=== PATIENT | female | born 1970 | race American Indian/Alaskan Native ===

== ENCOUNTER 2017-06-25 20:10 | Observation (INO) | payer OTHER, BC ==
[2017-06-25] MEDS ORDERED: Oxycodone/Acetaminophen 5/325 mg Tab PO STA (21:00)
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
[2017-06-25] MEDS ORDERED: Morphine 4 mg/ml ISec IVP STA (21:13)
[2017-06-25] MEDS: Sodium Chloride 0.9% 1,000 ML IV SCH (21:21)
[2017-06-25 21:28] LABS: BASO # 0.04 K/mm3 (0.0-2.0); BASO % 0.6 % (0.0-3.0); EOS # 0.3 (0.0-0.7); EOS % 3.9 % (1.5-5.0); GRAN # 3.9 (1.4-6.5); GRAN % 55.9 % (50.0-68.0); HEMATOCRIT 39.7 % (36.0-48.0); LYMPH # 2.4 (1.2-3.4); LYMPH % 34.3 % (22.0-35.0); MEAN CELL VOLUME 90.4 fl (80.0-105.0); MEAN CORPUSCULAR HEMOGLOBIN 30.1 pg (25.0-35.0); MEAN CORPUSCULAR HGB CONC 33.2 g/dl (31.0-37.0); MEAN PLATELET VOLUME 9.9 fl (7.0-11.0); MONO # 0.4 (0.1-0.6); MONO % 5.3 % (1.0-6.0); RED CELL DISTRIBUTION WIDTH 13.8 % (11.5-14.5)
[2017-06-25 22:01] LABS: ALB/GLOB RATIO 1.1 (1.1-1.8); ALKALINE PHOSPHATASE 74 U/L (38-133); ALT/SGPT 26 U/L (7-56); AST/SGOT 27 U/L (15-39); BILIRUBIN,TOTAL 0.4 mg/dL (0.2-1.3); BLOOD UREA NITROGEN 13 mg/dL (7-21); CALCIUM 8.8 mg/dL (8.4-10.5); CARBON DIOXIDE 26 mmol/L (21-33); CHLORIDE 108 mmol/L (98-107); GFR AFRICAN-AMERICAN > 60; GLUCOSE,RANDOM 86 mg/dL (70-110); POTASSIUM 3.8 mmol/L (3.6-5.0); SODIUM 141 mmol/L (132-148); TOTAL PROTEIN 7.4 g/dL (5.8-8.3)
[2017-06-25 22:15] LABS: TROPONIN I < 0.01 ng/mL
[2017-06-25] MEDS ORDERED: diaZEpam 10 mg/2 ml Inj IVP ONE (22:57)
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
[2017-06-26] MEDS ORDERED: Albuterol-Ipratrop 3 mg / 0.5 (3 ml) UD IH PRN (00:12)
[2017-06-26] MEDS: Morphine 2 mg/ml ISec IVP PRN ×3 (01:09→12:09)
[2017-06-26] MEDS: Sodium Chloride 0.9% 1,000 ML IV SCH ×2 (02:26→12:11)
[2017-06-26 03:33] VITALS: BMI 45.4
[2017-06-26] MEDS ORDERED: Pneumococcal 23-Valent Vaccine IM ONE (03:33)
[2017-06-26] MEDS ORDERED: Pantoprazole 40 mg EC Tab PO SCH (06:00)
[2017-06-26 06:20] LABS: URINE BILIRUBIN NEGATIVE (NEGATIVE); URINE BLOOD NEGATIVE (NEGATIVE); URINE GLUCOSE (UA) NEGATIVE (NEGATIVE); URINE KETONE NEGATIVE (NEGATIVE); URINE LEUKOCYTE ESTERASE NEGATIVE Leu/uL (NEGATIVE); URINE PROTEIN NEGATIVE mg/dL (<30 mg/dL)
[2017-06-26 06:25] LABS: URINE APPEARANCE CLEAR (CLEAR); URINE COLOR YELLOW (YELLOW)
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
[2017-06-26] MEDS: Albuterol-Ipratrop 3 mg / 0.5 (3 ml) UD IH SCH ×2 (08:02→13:40)
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
[2017-06-26 08:23] VITALS: BP 125/61; PULSE 72; RESP 18; TEMP 98.1; O2SAT 98
--- NOTE | 2017-06-26 08:53 | RAD ---
PROCEDURE: Radiographs of the left elbow. HISTORY: r/o fracture COMPARISON: No prior. FINDINGS: BONES: There is no acute displaced fracture or bone destruction. Bone alignment and mineralization are normal JOINTS: Normal. No osteoarthritis. SOFT TISSUES: Normal. JOINT EFFUSION: None. OTHER FINDINGS: None IMPRESSION: No acute displaced fracture or dislocation.
--- NOTE | 2017-06-26 09:00 | RAD ---
PROCEDURE: Cervical Spine Radiographs. HISTORY: Pain. COMPARISON: None. FINDINGS: BONES: There is straightening of the cervical spine with loss of normal cervical lordosis. Vertebral alignment is normal. Status post ACDF at C3-4 and C4-5. The craniocervical junction is normal. The atlantoaxial joint is normal. DISC SPACES: There is severe degenerative disc disease at C2-3 and C6-7 with anterior osteophytes and reduced disc heights. SOFT TISSUES: Normal. No prevertebral soft tissue swelling. OTHER FINDINGS: None. IMPRESSION: Status post ACDF at C3-4 and C4-5, severe degenerative disc disease at C2-3 and C6-7. Straightening of the cervical spine may be positional or related to muscle spasm.
--- NOTE | 2017-06-26 10:11 | CARD ---
APPROVED REPORT EKG Measurement Heart [id number] <Conclusion> Sinus rhythm with 1st degree AV block Moderate voltage criteria for LVH, may be normal variant Borderline ECG
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
== END 2017-06-26 15:29 | disposition home or self-care (01) ==
LOC: ED 20:10 → ERH 23:02 → 3RNO 06-26 01:46
PROVIDERS: ADMIT Internal Medicine; ATTEND Hospitalist
DX: R07.9 Chest pain, unspecified (principal); E11.9 Type 2 diabetes mellitus without complications; G47.30 Sleep apnea, unspecified; I10 Essential (primary) hypertension; I25.10 Atherosclerotic heart disease of native coronary artery without angina pectoris; J45.909 Unspecified asthma, uncomplicated; Z79.899 Other long term (current) drug therapy; Z82.49 Family history of ischemic heart disease and other diseases of the circulatory system; Z82.5 Family history of asthma and other chronic lower respiratory diseases; Z83.3 Family history of diabetes mellitus; G43.909 Migraine, unspecified, not intractable, without status migrainosus; R26.81 Unsteadiness on feet; Z98.51 Tubal ligation status; F41.9 Anxiety disorder, unspecified; F32.89 Other specified depressive episodes; Z88.6 Allergy status to analgesic agent; Z88.1 Allergy status to other antibiotic agents; Z88.8 Allergy status to other drugs, medicaments and biological substances; G47.00 Insomnia, unspecified; R20.2 Paresthesia of skin; M54.12 Radiculopathy, cervical region; S40.012A Contusion of left shoulder, initial encounter; S50.02XA Contusion of left elbow, initial encounter; V43.52XA Car driver injured in collision with other type car in traffic accident, initial encounter; Y92.410 Unspecified street and highway as the place of occurrence of the external cause
CPT/HCPCS: 36415; 71020; 72050; 73030; 73080; 80053; 81003; 82550; 82948; 83615; 84484; 85025; 93005; 96374; 96375; 96376; 99285; G0378; J2270; J2405; J3360; J7040

== ENCOUNTER 2017-09-25 10:45 | Emergency (ER) | payer BC ==
[2017-09-25 10:50] VITALS: BMI 43.8
[2017-09-25] MEDS ORDERED: Albuterol-Ipratrop 3 mg / 0.5 (3 ml) UD IH STA (11:10)
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
[2017-09-25] MEDS ORDERED: DiphenhydrAMINE 50 mg/ml Inj IVP STA (11:12)
[2017-09-25 11:14] VITALS: RESP 16; TEMP 97.9; O2SAT 100
[2017-09-25 11:23] LABS: BASO # 0.03 K/mm3 (0.0-2.0); BASO % 0.4 % (0.0-3.0); EOS # 0.2 (0.0-0.7); GRAN # 3.51 (1.4-6.5); GRAN % 50.9 % (50.0-68.0); HEMATOCRIT 43.7 % (36.0-48.0); LYMPH # 2.8 (1.2-3.4); LYMPH % 40.8 % (22.0-35.0); MEAN CELL VOLUME 91.6 fl (80.0-105.0); MEAN CORPUSCULAR HEMOGLOBIN 30.6 pg (25.0-35.0); MEAN CORPUSCULAR HGB CONC 33.4 g/dl (31.0-37.0); MEAN PLATELET VOLUME 10.6 fl (7.0-11.0); MONO # 0.3 (0.1-0.6); MONO % 4.9 % (1.0-6.0); WHITE BLOOD COUNT 6.9 10^3/ul (4.5-11.0)
[2017-09-25 11:36] LABS: INR 1.01 (0.93-1.08); PARTIAL THROMBOPLASTIN TIME 28.5 Seconds (25.1-36.5)
[2017-09-25 12:08] LABS: ALKALINE PHOSPHATASE 90 U/L (38-126); ALT/SGPT 29 U/L (7-56); AST/SGOT 21 U/L (14-36); BILIRUBIN,TOTAL 0.6 mg/dL (0.2-1.3); BLOOD UREA NITROGEN 10 mg/dL (7-21); CALCIUM 8.8 mg/dL (8.4-10.5); CARBON DIOXIDE 28 mmol/L (21-33); CHLORIDE 106 mmol/L (98-107); GFR AFRICAN-AMERICAN > 60; GLUCOSE,RANDOM 96 mg/dL (70-110); POTASSIUM 3.5 mmol/L (3.6-5.0); SODIUM 140 mmol/L (132-148); TOTAL PROTEIN 7.7 g/dL (5.8-8.3)
[2017-09-25 12:20] LABS: TROPONIN I < 0.01 ng/mL
--- NOTE | 2017-09-25 13:01 | RAD ---
HISTORY: pain COMPARISON: Comparison is made to 09/04/2017 TECHNIQUE: Chest PA and lateral FINDINGS: LUNGS: No active pulmonary disease. PLEURA: No significant pleural effusion identified. No pneumothorax apparent. CARDIOVASCULAR: Normal. OSSEOUS STRUCTURES: No significant abnormalities. VISUALIZED UPPER ABDOMEN: Normal. OTHER FINDINGS: None. IMPRESSION: No active disease.
[2017-09-25 13:49] LABS: PH,URINE 6.5 (4.7-8.0); URINE BILIRUBIN NEGATIVE (NEGATIVE); URINE BLOOD NEGATIVE (NEGATIVE); URINE GLUCOSE (UA) NEGATIVE (NEGATIVE); URINE KETONE NEGATIVE (NEGATIVE); URINE LEUKOCYTE ESTERASE NEGATIVE Leu/uL (NEGATIVE); URINE PROTEIN NEGATIVE mg/dL (<30 mg/dL); URINE UROBILINOGEN 0.2 E.U./dL (<1 E.U./dL)
[2017-09-25 13:51] LABS: URINE APPEARANCE CLEAR (CLEAR); URINE COLOR YELLOW (YELLOW)
[2017-09-25 16:07] VITALS: BP 152/87; PULSE 68
--- NOTE | 2017-09-26 09:52 | CARD ---
APPROVED REPORT EKG Measurement Heart [id number] <Conclusion> Normal sinus rhythm with sinus arrhythmia Minimal voltage criteria for LVH, may be normal variant NSSTW changes No change
== END 2017-09-25 15:00 | disposition home or self-care (01) ==
LOC: ED 10:45
DX: R07.9 Chest pain, unspecified (principal); T50.995A Adverse effect of other drugs, medicaments and biological substances, initial encounter; Y92.89 Other specified places as the place of occurrence of the external cause; I10 Essential (primary) hypertension; E11.9 Type 2 diabetes mellitus without complications
CPT/HCPCS: 71020; 80053; 81003; 82550; 83615; 83880; 84484; 85025; 85610; 85730; 87086; 93005; 96374; 96375; 99284; J1200; J2930

== ENCOUNTER 2018-02-06 07:35 | Emergency (ER) | payer BC ==
[2018-02-06 07:45] VITALS: BMI 47.0
[2018-02-06] MEDS ORDERED: DiphenhydrAMINE 50 mg/ml Inj IVP ONE (07:51)
[2018-02-06] MEDS ORDERED: Sodium Chloride 0.9% 500 ML IV ONE (07:51)
[2018-02-06 07:55] VITALS: TEMP 98.1
--- NOTE | 2018-02-06 07:59 | ED PDOC ---
Arrival/HPI - General Chief Complaint: Allergic Reaction Time Seen by Provider: 02/06/18 07:46 Historian: Patient - History of Present Illness Narrative History of Present Illness (Text): 02/06/18 07:58 A 48 year old female, whose past medical history includes hypertension and CAD, presents to the emergency department complaining of difficulty swallowing, difficulty breathing. Patient reports she woke up and felt something was stuck in her throat. Patient reports similar symptoms multiple times in the past. Patient denies smoking or drinking. Denies any fever, wheezing, chest pain, nausea, vomiting or any other complaints at this time. Symptom Onset: Sudden Symptom Course: Unchanged Activities at Onset: Rest Context: Home Associated Symptoms (Text): 02/06/18 10:41 This morning with a feeling as if something was stuck in her throat. She has had similar episodes multiple times previously and diagnosed with allergic reaction with uvula swelling and edema. She does not appear to be in any distress. No respiratory distress. Past Medical History - Provider Review Nursing Documentation Reviewed: Yes - Infectious Disease Hx of Infectious Diseases: None - Tetanus Immunization Tetanus Immunization: Unknown - Cardiac Hx Cardiac Disorders: Yes Hx [place]: Yes (x3) Hx Hypertension: Yes - Pulmonary Hx Respiratory Disorders: Yes Hx Asthma: Yes Hx Respiratory Tract Infection: Yes Hx Sleep Apnea: Yes - Neurological Hx Neurological Disorder: Yes Hx Migraine: Yes - HEENT Hx HEENT Disorder: Yes Other/Comment: HX:eye surgery for lazy eye - Endocrine/Metabolic Hx Endocrine Disorders: Yes Hx Diabetes Mellitus Type 2: Yes - Hematological/Oncological Hx Blood Disorders: Yes Hx Anemia: Yes Other/Comment: HX: MGUS - Musculoskeletal/Rheumatological Hx Musculoskeletal Disorders: Yes Hx Falls: Yes Hx Unsteady Gait: Yes Other/Comment: HX: "LEFT KNEE MENISCUS REPAIR"-PER MED. RECORD. HX: "NECK SURGERY INVOLVING PLACEMENT OF METAL PLATES C2-C4"-PER MED RECORD - Genitourinary/Gynecological Hx Genitourinary Disorders: Yes Other/Comment: HX:fibroids - Psychiatric Hx Psychophysiologic Disorder: Yes Hx Anxiety: Yes Hx Depression: Yes Hx Substance Use: No - Surgical History Hx Eye Surgery: Yes (FOR LAZY EYE) Hx Musculoskeletal Surgery: Yes (LEFT KNEE MENISCUS REPAIR) Hx Orthopedic Surgery: Yes ("PLACEMENT OF METAL PLATES C2-C4"-PER MED. RECORD) Hx Tubal Ligation: Yes Other/Comment: thermal ablation - Anesthesia Hx Anesthesia: Yes Hx Anesthesia Reactions: No Hx Malignant Hyperthermia: No - Suicidal Assessment Feels Threatened In Home Enviroment: No Family/Social History - Physician Review Nursing Documentation Reviewed: Yes Family/Social History: No Known Family HX Smoking Status: Never Smoked Hx Alcohol Use: No Hx Substance Use: No Hx Substance Use Treatment: No Allergies/Home Meds Allergies/Adverse Reactions: Allergies azithromycin [From Zithromax Z-Héctor] Allergy (Verified 02/06/18 07:52) ANAPHYLAXIS ibuprofen [From Motrin] Allergy (Verified 02/06/18 07:52) ANAPHYLAXIS Iodine and Iodide Containing Produc Allergy (Verified 02/06/18 07:52) SHORTNESS OF BREATH pt denies, [id number] levofloxacin [From Levaquin] Allergy (Verified 02/06/18 07:52) RASH only if taking it more then 2 weeks Home Medications: Home Meds Medication Instructions Recorded Confirmed Aspirin [Adult Low Dose Aspirin EC] 1 tab PO DAILY 09/25/17 02/06/18 Benzonatate [Tessalon Perle] 1 tab PO TID 09/25/17 02/06/18 Clonazepam [Klonopin] 1 tab PO DAILY 09/25/17 02/06/18 Diltiazem HCl [Cartia Xt] 1 tab PO DAILY 09/25/17 02/06/18 Esomeprazole Magnesium [Nexium] 40 mg PO BID 09/25/17 02/06/18 Fluconazole [Diflucan] 200 mg PO DAILY 09/25/17 02/06/18 Fluticasone/Salmeterol 250/50 1 puff IH DAILY 09/25/17 02/06/18 [Advair Diskus 250/50] Lisinopril [Zestril] 40 mg PO DAILY 09/25/17 02/06/18 Metoprolol [Lopressor] 0 mg PO DAILY 09/25/17 02/06/18 Montelukast [Singulair] 10 mg PO HS 09/25/17 02/06/18 Pregabalin [Lyrica] 1 tab PO BID 09/25/17 02/06/18 Sucralfate [Carafate] 1 tab PO QID 09/25/17 02/06/18 Tiotropium [Spiriva] 1 puff IH DAILY 09/25/17 02/06/18 Review of Systems - Physician Review All systems were reviewed & negative as marked: Yes - Review of Systems Constitutional: absent: Fatigue, Fevers ENT: Other (difficulty swallowing, breathing) Respiratory: SOB. absent: Cough, Sputum, Wheezing Cardiovascular: absent: Chest Pain, Palpitations, Syncope Gastrointestinal: absent: Abdominal Pain, Nausea, Vomiting Skin: absent: Rash, Pruritis Physical Exam Vital Signs Reviewed: Yes Vital Signs Temp Pulse Resp BP Pulse Ox 02/06/18 12:46 78 16 143/77 99 02/06/18 10:29 70 18 166/87 H 97 02/06/18 07:45 98.1 F 71 18 195/86 H 100 Temperature: Afebrile Blood Pressure: Hypertensive Pulse: Regular Respiratory Rate: Normal Appearance: Positive for: Comfortable, Other (obese) Pain Distress: None Mental Status: Positive for: Alert and Oriented X 3 - Systems Exam Head: Present: Atraumatic, Normocephalic Pupils: Present: PERRL Extroacular Muscles: Present: EOMI Conjunctiva: Present: Normal Ears: Present: NORMAL TM, Normal Canal. No: Erythema Mouth: Present: Moist Mucous Membranes Pharnyx: Present: Other (Uvula edematous, erythematous and swollen; no airway compromise). No: ERYTHEMA, EXUDATE, TONSILS ENLARGED, Peritonsilar Swelling, Uvular Deviation, Muffled/Hoarse Voice, Strider Neck: Present: Normal Range of Motion Respiratory/Chest: Present: Clear to Auscultation, Good Air Exchange. No: Respiratory Distress, Accessory Muscle Use, Wheezes, Decreased Breath Sounds, Rales, Retracting, Rhonchi, Tachypneic Cardiovascular: Present: Regular Rate and Rhythm, Normal S1, S2. No: Murmurs Abdomen: No: Tenderness, Distention, Peritoneal Signs Back: Present: Normal Inspection Upper Extremity: Present: Normal Inspection. No: Cyanosis, Edema Lower Extremity: Present: Normal Inspection. No: Edema Neurological: Present: GCS=15, CN II-XII Intact, Speech Normal, Motor Func Grossly Intact Skin: Present: Warm, Dry, Normal Color. No: Rashes Psychiatric: Present: Alert, Oriented x 3, Normal Insight, Normal Concentration Medical Decision Making ED Course and Treatment: 02/06/18 07:57 Impression: A 48 year old female with difficulty swallowing, breathing. Plan: -- IV fluids, Solumedrol, Pepcid, Benadryl -- Reassess and disposition Prior Visits: Notes and results from previous visits were reviewed. Patient was last seen in the emergency department on 09/25/17 for evaluation of left sided chest tightness. Progress Notes: 02/06/18 11:12 Sleeping comfortably. Easily aroused. Reports she feels as if the swelling is improving. On exam the uvula edema is unchanged. The erythema has improved. 02/06/18 13:04 Symptoms are markedly improved. Uvula swelling is improved. Patient will be discharged home on prednisone and [id number] Benadryl and Pepcid. Find and avoid the allergen. Follow-up with PMD. Follow-up in the ER as needed. - Medication Orders Current Medication Orders: Discontinued Medications Diphenhydramine HCl (Benadryl) 25 mg IVP ONCE ONE Stop: 02/06/18 07:52 Last Admin: 02/06/18 09:16 Dose: 25 mg IVP Administration Document 02/06/18 09:16 [facility] (Rec: 02/06/18 09:16 [id number] Charges for Administration # of IVP Administrations 1 Famotidine (Pepcid) 20 mg IVP STAT STA Stop: 02/06/18 07:52 Last Admin: 02/06/18 09:16 Dose: 20 mg IVP Administration Document 02/06/18 09:16 [facility] (Rec: 02/06/18 09:16 [id number] Charges for Administration # of IVP Administrations 1 Sodium Chloride (Sodium Chloride 0.9%) 500 mls @ 500 mls/hr IV ONCE ONE Stop: 02/06/18 08:50 Last Admin: 02/06/18 09:17 Dose: 500 mls/hr eMAR Start Stop Document 02/06/18 09:17 [facility] (Rec: 02/06/18 09:17 [id number] Intravenous Solution Start Date 02/06/18 Start Time 09:17 End Date 02/06/18 End time 10:17 Total Infusion Time 60 Methylprednisolone (Solu-Medrol) 125 mg IVP ONCE ONE Stop: 02/06/18 07:52 Last Admin: 02/06/18 09:16 Dose: 125 mg IVP Administration Document 02/06/18 09:16 [facility] (Rec: 02/06/18 09:16 [facility] [id number]) Charges for Administration # of IVP Administrations 1 - Scribe Statement The provider has reviewed the documentation as recorded by the Jacindaibfunmilayo Gatica Provider Scribe Attestation: All medical record entries made by the Scribe were at my direction and personally dictated by me. I have reviewed the chart and agree that the record accurately reflects my personal performance of the history, physical exam, medical decision making, and the department course for this patient. I have also personally directed, reviewed, and agree with the discharge instructions and disposition. Disposition/Present on Arrival - Present on Arrival Any Indicators Present on Arrival: No History of DVT/PE: No History of Uncontrolled Diabetes: No Urinary Catheter: No History of Decub. Ulcer: No History Surgical Site Infection Following: None - Disposition Have Diagnosis and Disposition been Completed?: Yes Diagnosis: Angioedema Disposition: HOME/ ROUTINE Disposition Time: 13:05 Patient Plan: Discharge Condition: IMPROVED Discharge Instructions (ExitCare): Angioedema Additional Instructions: [id number] Pepcid and Benadryl as directed on bottle. Follow-up with PMD. Follow up in ER as needed. Prescriptions: Prednisone [Deltasone] 40 mg PO DAILY #10 tablet Referrals: Konstantin Menezes MD [Primary Care Provider] - Follow up with primary Forms: [employer] (Spanish)
[2018-02-06 12:47] VITALS: BP 143/77; PULSE 78; RESP 16; O2SAT 99
== END 2018-02-06 13:51 | disposition home or self-care (01) ==
LOC: ED 07:35
DX: T78.3XXA Angioneurotic edema, initial encounter (principal); E11.9 Type 2 diabetes mellitus without complications; I10 Essential (primary) hypertension; I25.10 Atherosclerotic heart disease of native coronary artery without angina pectoris
CPT/HCPCS: 96361; 96374; 96375; 99284; J1200; J2930; J7040

== ENCOUNTER 2018-05-22 14:49 | Emergency (ER) | payer BC ==
[2018-05-22 14:49] VITALS: BMI 47.0
[2018-05-22 15:20] VITALS: RESP 18
--- NOTE | 2018-05-22 16:15 | ED PDOC ---
Arrival/HPI - History of Present Illness Time/Duration: < week Symptom Course: Intermittent Activities at Onset: Light Context: Home - General Chief Complaint: Abdominal Pain Time Seen by Provider: 05/22/18 15:21 - History of Present Illness Narrative History of Present Illness (Text): 05/22/18 16:02 This is a 48 year old female with PMH of NH x 3, CAD, HT, DM2, COPD on 2L O2 home therapy, iron deficency anemia, tubal ligation, and fibroid removal surgery in 2016 presenting to the ED for nausea, vomiting and abdominal pain that began on Monday night. Patient states she has NBNB vomiting x3 days and associated diffuse abdominal pain and nausea. She has not been able to tolerate food or drink. Patient denies similar pain in past. She denies eating unusual food recently. She denies CP, SOB, headache, diarrhea, constipation, hematemesis , hematochezia, chills, fevers, urinary problems, dysuria, recent travel and recent sickness. PMD is Dr. Jamie AL MD is Dr. Deleon ([facility]) Past Medical History - Provider Review Nursing Documentation Reviewed: Yes - Infectious Disease Hx of Infectious Diseases: None - Tetanus Immunization Tetanus Immunization: Unknown - Cardiac Hx Cardiac Disorders: Yes Hx [place]: Yes (x3) Hx Hypertension: Yes - Pulmonary Hx Respiratory Disorders: Yes Hx Asthma: Yes Hx Respiratory Tract Infection: Yes Hx Sleep Apnea: Yes - Neurological Hx Neurological Disorder: Yes Hx Migraine: Yes - HEENT Hx HEENT Disorder: Yes Other/Comment: HX:eye surgery for lazy eye - Endocrine/Metabolic Hx Endocrine Disorders: Yes Hx Diabetes Mellitus Type 2: Yes - Hematological/Oncological Hx Blood Disorders: Yes Hx Anemia: Yes Other/Comment: HX: MGUS - Musculoskeletal/Rheumatological Hx Musculoskeletal Disorders: Yes Hx Falls: Yes Hx Unsteady Gait: Yes Other/Comment: HX: "LEFT KNEE MENISCUS REPAIR"-PER MED. RECORD. HX: "NECK SURGERY INVOLVING PLACEMENT OF METAL PLATES C2-C4"-PER MED RECORD - Genitourinary/Gynecological Hx Genitourinary Disorders: Yes Other/Comment: HX:fibroids - Psychiatric Hx Psychophysiologic Disorder: Yes Hx Anxiety: Yes Hx Depression: Yes Hx Substance Use: No - Surgical History Hx Eye Surgery: Yes (FOR LAZY EYE) Hx Musculoskeletal Surgery: Yes (LEFT KNEE MENISCUS REPAIR) Hx Orthopedic Surgery: Yes ("PLACEMENT OF METAL PLATES C2-C4"-PER MED. RECORD) Hx Tubal Ligation: Yes Other/Comment: thermal ablation - Anesthesia Hx Anesthesia: Yes Hx Anesthesia Reactions: No Hx Malignant Hyperthermia: No - Suicidal Assessment Feels Threatened In Home Enviroment: No Family/Social History Family/Social History: Unknown Family HX Smoking Status: Never Smoked Hx Alcohol Use: No Hx Substance Use: No Hx Substance Use Treatment: No Allergies/Home Meds Allergies/Adverse Reactions: Allergies azithromycin [From Zithromax Z-Héctor] Allergy (Verified 02/06/18 07:52) ANAPHYLAXIS ibuprofen [From Motrin] Allergy (Verified 02/06/18 07:52) ANAPHYLAXIS Iodine and Iodide Containing Produc Allergy (Verified 02/06/18 07:52) SHORTNESS OF BREATH pt denies, [id number] levofloxacin [From Levaquin] Allergy (Verified 02/06/18 07:52) RASH only if taking it more then 2 weeks Home Medications: Home Meds Medication Instructions Recorded Confirmed Aspirin [Adult Low Dose Aspirin EC] 1 tab PO DAILY 09/25/17 02/06/18 Benzonatate [Tessalon Perle] 1 tab PO TID 09/25/17 02/06/18 Clonazepam [Klonopin] 1 tab PO DAILY 09/25/17 02/06/18 Diltiazem HCl [Cartia Xt] 1 tab PO DAILY 09/25/17 02/06/18 Esomeprazole Magnesium [Nexium] 40 mg PO BID 09/25/17 02/06/18 Fluconazole [Diflucan] 200 mg PO DAILY 09/25/17 02/06/18 Fluticasone/Salmeterol 250/50 1 puff IH DAILY 09/25/17 02/06/18 [Advair Diskus 250/50] Lisinopril [Zestril] 40 mg PO DAILY 09/25/17 02/06/18 Metoprolol [Lopressor] 0 mg PO DAILY 09/25/17 02/06/18 Montelukast [Singulair] 10 mg PO HS 09/25/17 02/06/18 Pregabalin [Lyrica] 1 tab PO BID 09/25/17 02/06/18 Sucralfate [Carafate] 1 tab PO QID 09/25/17 02/06/18 Tiotropium [Spiriva] 1 puff IH DAILY 09/25/17 02/06/18 Review of Systems - Physician Review All systems were reviewed & negative as marked: Yes - Review of Systems Constitutional: Normal. absent: Fevers Eyes: Normal. absent: Vision Changes ENT: Normal. absent: Hearing Changes Respiratory: Normal. absent: SOB, Cough Cardiovascular: Normal. absent: Chest Pain, Palpitations Gastrointestinal: Abdominal Pain, Nausea, Vomiting. absent: Stool Changes, Diarrhea, Hematochezia, Hematemesis Genitourinary Female: Normal. absent: Dysuria, Frequency Musculoskeletal: Normal Skin: Normal Neurological: Normal Psychiatric: Normal Physical Exam Vital Signs Reviewed: Yes Temperature: Afebrile Blood Pressure: Normal Pulse: Regular Respiratory Rate: Normal Appearance: Positive for: Well-Appearing, Non-Toxic, Comfortable Pain Distress: None Mental Status: Positive for: Alert and Oriented X 3 - Systems Exam Head: Present: Atraumatic, Normocephalic Pupils: Present: PERRL Extroacular Muscles: Present: EOMI Conjunctiva: Present: Normal Mouth: Present: Moist Mucous Membranes Neck: Present: Normal Range of Motion Respiratory/Chest: Present: Clear to Auscultation, Good Air Exchange. No: Respiratory Distress, Accessory Muscle Use Cardiovascular: Present: Regular Rate and Rhythm, Normal S1, S2. No: Murmurs Abdomen: Present: Tenderness, Normal Bowel Sounds, Other. No: Distention, Peritoneal Signs, Rebound, Guarding, McBurney's Point Tender Back: Present: Normal Inspection Upper Extremity: Present: Normal Inspection. No: Cyanosis, Edema Lower Extremity: Present: Normal Inspection. No: Edema Neurological: Present: Speech Normal, Motor Func Grossly Intact, Normal Sensory Function Skin: Present: Warm, Dry, Normal Color. No: Rashes Psychiatric: Present: Alert, Oriented x 3, Normal Insight, Normal Concentration Vital Signs Temp Pulse Resp BP Pulse Ox 05/22/18 15:16 98.5 F 72 18 104/72 98 Medical Decision Making ED Course and Treatment: 05/22/18 20:54 Patient seen by resident and then evaluated by me. Presentation with vomiting and abdominal pain. Generalized tenderness on exam, worse in RUQ. Also complaining of dysuria. Abdominal u/s negative. CT shows "Scattered diverticulosis of the colon. No evidence of diverticulitis. No findings to suggest acute appendicitis." On reevaluation, patient reports that she feels better. Abdomen soft NT/ND and tolerating po. Will dc home with antibiotics for uti 05/22/18 20:56 05/22/18 21:21 (Sheryl Granados) 05/22/18 16:27 Impression: This is a 48 year old female with PMH of DM2, COPD on 2L O2 home therapy, tubal ligation, and fibroid removal surgery in 2015 presenting to the ED for nausea, vomiting and abdominal pain that began on Monday night. Differential: Cholecystitis vs gastritis vs gastroenteritis vs fibroids vs diverticulosis Plan: Will get blood work and RUQ US. Toradol and zofran given for pain and nausea. Progress: 05/22/18 18:41 Resting comfortably, vitals are stable and afebrile. Nausea is improved. 05/22/18 18:41 Abd US: Limited evaluation of pancreas due to overlying bowel gas. Otherwise, unremarkable abdominal ultrasound. (Carla Guevara) - Lab Interpretations Lab Results: 05/22/18 16:50 05/22/18 16:50 Lab Results 05/22/18 19:41: Urine Color Dark yellow, Urine Appearance Slight-cloudy, Urine pH 6.0, Ur Specific [place] >= 1.030, Urine Protein Trace H, Urine Glucose (UA) Negative, Urine Ketones Negative, Urine Blood Negative, Urine Nitrate Negative, Urine Bilirubin Negative, Urine Urobilinogen 0.2, Ur Leukocyte Esterase Trace H , Urine RBC Negative, Urine WBC 1 - 3, Ur Epithelial Cells 6 - 8, Urine Bacteria Mod 05/22/18 16:50: Sodium 142, Potassium 3.6, Chloride 107, Carbon Dioxide 24, Anion Gap 14, BUN 10, Creatinine 0.7, Est GFR ( Amer) > 60, Est GFR (Non- Af Amer) > 60, Random Glucose 85, Calcium 8.8, Total Bilirubin 0.5, AST 33, ALT 39, Alkaline Phosphatase 81, Total Protein 7.4, Albumin 3.9, Globulin 3.5, Albumin/Globulin Ratio 1.1, Lipase 44 05/22/18 16:50: WBC 4.6 D, RBC 4.43, Hgb 12.9, Hct 38.8, MCV 87.6 D, MCH 29.1 , MCHC 33.2, RDW 14.2, Plt Count 274, MPV 9.7, Gran % 41.7 L, Lymph % (Auto) 45.8 H, Stephenson % (Auto) 6.8 H, Eos % (Auto) 5.3 H, Baso % (Auto) 0.4, Gran # 1.90 , Lymph # (Auto) 2.1, Stephenson # (Auto) 0.3, Eos # (Auto) 0.2, Baso # (Auto) 0.02 - RAD Interpretation Radiology Orders: 05/22/18 16:05 ABDOMEN COMPLETE [US] Stat 05/22/18 19:08 ABD & PELVIS W/O PO OR IV CONT [CT] Stat - Medication Orders Current Medication Orders: Discontinued Medications Sodium Chloride (Sodium Chloride 0.9%) 1,000 mls @ 999 mls/hr IV .Q1H1M STA Stop: 05/22/18 17:52 Last Admin: 05/22/18 16:58 Dose: 999 mls/hr eMAR Start Stop Document 05/22/18 16:58 [facility] (Rec: 05/22/18 16:58 [place] [id number]) Intravenous Solution Start Date 05/22/18 Start Time 16:58 Morphine Sulfate (Morphine) 4 mg IVP STAT STA Stop: 05/22/18 16:58 Last Admin: 05/22/18 17:06 Dose: 4 mg [facility] Pain Assessment Document 05/22/18 17:06 HI (Rec: 05/22/18 17:07 [place] [id number]) Pain Reassessment Is this a pain reassessment? No Sleep Is patient sleeping during reassessment? No Presence of Pain Presence of Pain Yes Location Pain Location Body Site Abdomen Description Pain Behavior Facial Grimacing IVP Administration Document 05/22/18 17:06 [facility] (Rec: 05/22/18 17:[id number] Charges for Administration # of IVP Administrations 1 Re-Assess: DAVID Pain Assessment Document 05/22/18 18:06 [facility] (Rec: 05/22/18 21:26 [place] [id number]) Pain Reassessment Is this a pain reassessment? Yes Sleep Is patient sleeping during reassessment? No Presence of Pain Presence of Pain No Nitrofurantoin Macrocrystals (Macrobid) 100 mg PO STAT STA PRN Reason: Protocol Stop: 05/22/18 20:57 Last Admin: 05/22/18 21:34 Dose: 100 mg Ondansetron HCl (Zofran Inj) 4 mg IVP STAT STA Stop: 05/22/18 15:54 Last Admin: 05/22/18 16:58 Dose: 4 mg IVP Administration Document 05/22/18 16:58 [facility] (Rec: 05/22/18 16:58 [place] [id number]) Charges for Administration # of IVP Administrations 1 - PA / [employer] / Resident Statement / has reviewed & agrees with the documentation as recorded. / has examined the patient and agrees with the treatment plan. Disposition/Present on Arrival - Present on Arrival Any Indicators Present on Arrival: No History of DVT/PE: No History of Uncontrolled Diabetes: No Urinary Catheter: No History of Decub. Ulcer: No History Surgical Site Infection Following: None - Disposition Have Diagnosis and Disposition been Completed?: Yes Disposition Time: 22:00 Patient Plan: Discharge - Disposition Diagnosis: UTI (urinary tract infection), Diverticulosis, Gastritis Disposition: HOME/ ROUTINE Condition: GOOD Discharge Instructions (ExitCare): Urinary Tract Infections in Adults, Gastritis (DC) Additional Instructions: Follow-up with PMD within 2 days. Follow-up with GI within 1 week. Return immediately with any worsening symptoms. Take full course of antibiotics Prescriptions: Nitrofurantoin Macrocrystals [Macrobid] 100 mg PO BID 10 Days #20 cap Referrals: Marquise Sarmiento MD [Staff Provider] - Follow up with primary Forms: [employer] (Liberian)
[2018-05-22] MEDS ORDERED: Sodium Chloride 0.9% 1,000 ML IV STA (16:52)
[2018-05-22] MEDS ORDERED: Morphine 4 mg/ml ISec IVP STA (16:57)
[2018-05-22 17:03] LABS: BASO # 0.02 K/mm3 (0.0-2.0); BASO % 0.4 % (0.0-3.0); EOS # 0.2 (0.0-0.7); EOS % 5.3 % (1.5-5.0); GRAN # 1.9 (1.4-6.5); GRAN % 41.7 % (50.0-68.0); HEMOGLOBIN 12.9 g/dL (12.0-16.0); LYMPH # 2.1 (1.2-3.4); LYMPH % 45.8 % (22.0-35.0); MEAN CELL VOLUME 87.6 fl (80.0-105.0); MEAN CORPUSCULAR HEMOGLOBIN 29.1 pg (25.0-35.0); MEAN CORPUSCULAR HGB CONC 33.2 g/dl (31.0-37.0); MEAN PLATELET VOLUME 9.7 fl (7.0-11.0); MONO # 0.3 (0.1-0.6); MONO % 6.8 % (1.0-6.0); RBC 4.43 10^6/uL (3.5-6.1); RED CELL DISTRIBUTION WIDTH 14.2 % (11.5-14.5); WHITE BLOOD COUNT 4.6 10^3/ul (4.5-11.0)
[2018-05-22 17:11] LABS: ALB/GLOB RATIO 1.1 (1.1-1.8); ALBUMIN 3.9 g/dL (3.0-4.8); ALT/SGPT 39 U/L (7-56); AST/SGOT 33 U/L (14-36); BLOOD UREA NITROGEN 10 mg/dL (7-21); CALCIUM 8.8 mg/dL (8.4-10.5); GFR AFRICAN-AMERICAN > 60; GFR NON-AFRICAN AMERICAN > 60; LIPASE 44 U/L (23-300)
--- NOTE | 2018-05-22 17:46 | US ---
Date of service: 05/22/2018 HISTORY: RUQ pain COMPARISON: None. TECHNIQUE: Sonographic evaluation of the abdomen. FINDINGS: LIVER: Measures 17.3 cm. Normal echogenicity of the liver parenchyma. No mass. No intrahepatic bile duct dilatation. GALLBLADDER: Unremarkable. No gallstones. COMMON BILE DUCT: Measures 5 mm. No stones. No dilatation. PANCREAS: Not well-visualized RIGHT KIDNEY: Measures 12.5 x 5.0 x 5.0cm. Normal echogenicity. No calculus, mass, or hydronephrosis. LEFT KIDNEY: Measures 10.5 x 5.0 x 5.2cm. Normal echogenicity. No calculus, mass, or hydronephrosis. SPLEEN: Normal in size and contour. No mass. AORTA: No aneurysmal dilatation. IVC: Unremarkable. OTHER FINDINGS: None. IMPRESSION: Limited evaluation of the pancreas due to overlying bowel gas. Otherwise, unremarkable abdominal ultrasound.
[2018-05-22 20:10] LABS: URINE APPEARANCE SLIGHT-CLOUDY (CLEAR); URINE BILIRUBIN NEGATIVE (NEGATIVE); URINE BLOOD NEGATIVE (NEGATIVE); URINE COLOR DARK YELLOW (YELLOW); URINE GLUCOSE (UA) NEGATIVE (NEGATIVE); URINE LEUKOCYTE ESTERASE TRACE Leu/uL (NEGATIVE); URINE PROTEIN TRACE mg/dL (<30 mg/dL); URINE UROBILINOGEN 0.2 E.U./dL (<1 E.U./dL)
[2018-05-22 20:28] LABS: URINE BACTERIA MOD (NEG); URINE RBC NEGATIVE /hpf (0-2)
[2018-05-22 23:05] VITALS: BP 129/77; PULSE 80; TEMP 98.4; O2SAT 99
--- NOTE | 2018-05-23 09:20 | CT ---
Date of service: 05/22/2018 PROCEDURE: CT Abdomen and Pelvis without intravenous contrast HISTORY: diffuse abdominal pain COMPARISON: None. TECHNIQUE: Without contrast.. Contrast dose: Radiation dose: Total exam DLP = 1203 mGy-cm. This CT exam was performed using one or more of the following dose reduction techniques: Automated exposure control, adjustment of the mA and/or kV according to patient size, and/or use of iterative reconstruction technique. FINDINGS: LOWER THORAX: Unremarkable. LIVER: Unremarkable. No gross lesion or ductal dilatation. GALLBLADDER AND BILE DUCTS: Unremarkable. PANCREAS: Unremarkable. No gross lesion or ductal dilatation. SPLEEN: Unremarkable. ADRENALS: Unremarkable. No mass. KIDNEYS AND URETERS: Unremarkable. No hydronephrosis. No solid mass. VASCULATURE: Unremarkable. No aortic aneurysm. BOWEL: Unremarkable. No obstruction. No gross mural thickening. APPENDIX: Unremarkable. Normal appendix. PERITONEUM: Unremarkable. No free fluid. No free air. LYMPH NODES: Unremarkable. No enlarged lymph nodes. BLADDER: Unremarkable. REPRODUCTIVE: Unremarkable. BONES: No acute fracture. OTHER FINDINGS: The report concurs with the preliminary [facility] report IMPRESSION: No acute intra-abdominal findings
== END 2018-05-22 21:45 | disposition home or self-care (01) ==
LOC: ED 14:49
DX: K57.90 Diverticulosis of intestine, part unspecified, without perforation or abscess without bleeding (principal); K29.70 Gastritis, unspecified, without bleeding; N39.0 Urinary tract infection, site not specified
CPT/HCPCS: 74176; 76700; 80053; 81001; 83690; 85025; 96374; 96375; 99283; J2270; J2405; J7030